=== PATIENT | female | born 1975 | race Caucasian/White ===

== ENCOUNTER 2018-01-06 13:33 | Emergency (ER) | payer OTHER ==
[~2018-01-06] VITALS: Ht 165.1 cm; Wt 81.7 kg
[2018-01-06] MEDS ORDERED: ADDERALL 10 MG10 MG PO (13:49)
[2018-01-06] MEDS ORDERED: NABUMETONE 750750 M1 PO (14:21)
[2018-01-06] MEDS ORDERED: ONDANSETRON HCL4 M2 PO (14:22)
[2018-01-06 15:10] VITALS: BP 122/44
== END 2018-01-06 15:10 | disposition home or self-care (01) ==
LOC: M.ERS 13:33
DX: S06.0X0A Concussion without loss of consciousness, initial encounter (principal); J45.909 Unspecified asthma, uncomplicated; W22.8XXA Striking against or struck by other objects, initial encounter; Y93.89 Activity, other specified; Y92.89 Other specified places as the place of occurrence of the external cause; Y99.0 Civilian activity done for income or pay

== ENCOUNTER 2020-02-05 21:28 | Emergency (ER) | payer OTHER ==
[~2020-02-05] VITALS: Ht 165.1 cm; Wt 86.2 kg
[~2020-02-05 21:28] MED LIST: ADDERALL 10 MG10 MG PO; NABUMETONE 750750 M1 PO; ONDANSETRON HCL4 M2 PO
[2020-02-05] MEDS ORDERED: PYRIDIUM200 MG PO (21:46)
[2020-02-05] MEDS ORDERED: PROAIR HFA8.5 GM INH (21:46)
[2020-02-05 22:44] LABS: MCH 31.5 pg (26.0-34.0); NUCLEATED RBCS 0 /100WBC
[2020-02-05 22:49] LABS: ABSOLUTE BASOPHILS 0.1 thou/uL (0.0-0.2); ABSOLUTE EOSINOPHILS 0.2 thou/uL (0.0-0.7); ABSOLUTE LYMPHOCYTES 3.1 thou/uL (0.8-5.3); ABSOLUTE MONOCYTES 0.4 thou/uL (0.0-1.2); ABSOLUTE NEUTROPHILS 4.1 thou/uL (1.6-8.1); BASOPHILS 0.7 %; EOSINOPHILS 2.4 %; HEMATOCRIT 39.9 % (37.0-47.0); HEMOGLOBIN 13.5 gm/dL (12.0-15.0); LYMPHOCYTES 39.2 %; MCHC 33.8 g/dL (28.0-37.0); MCV 93.1 fL (80.0-100.0); MONOCYTES 5.4 %; MPV 8.7 fl. (7.2-11.1); PLATELET COUNT* 218 thou/uL (150-400); POLYS 52.3 %; RBC 4.29 mil/uL (4.20-5.00); RDW-CV 13.5 % (10.5-14.5); WBC 7.8 thou/uL (4.0-11.0)
[2020-02-05 22:51] LABS: INFLUENZA A ANTIGEN Negative (Negative); INFLUENZA B ANTIGEN Negative (Negative)
[2020-02-05 23:00] LABS: CREATININE 0.8 mg/dL (0.6-1.3); POTASSIUM 3.9 mmol/L (3.5-5.1)
[2020-02-05 23:03] LABS: ALBUMIN 3.5 g/dL (3.4-5.0); TOTAL BILIRUBIN 0.2 mg/dL (<0.1-1.0); TOTAL PROTEIN 6.9 g/dL (6.4-8.2)
[2020-02-06 00:27] VITALS: BP 115/69
--- NOTE | 2020-02-06 09:56 | EKG ---
[place] [address] ELECTROCARDIOGRAM REPORT Name: SOLAPRISCA Vang Room: [facility]#: [id number] Admission: 02/05/20 Attend Phys: Discharge: 02/06/20 Date of : 79 Date of Service: 02/05/202135 Report #: [id number] THIS REPORT FOR: //name// [facility] ED Test Date: 2020-02-05 Test Time: 21:36:17 Pat Name: PRISCA SELBY Department: Room: Gender: Pull Out Operator: REANNA : 1975 Requested By: Janee Gil Order Number: [id number] MD: Toribio Muir Measurements Intervals [place] Rate: 81 P: 26 MI: 152 QRS: 25 QRSD: 118 T: 6 QT: 379 QTc: 440 Interpretive Statements Sinus rhythm with sinus arrhythmia Nonspecific intraventricular conduction delay Low voltage, precordial leads Borderline T abnormalities, anterior leads No previous ECG available for comparison Electronically Signed On 02-06-2020 9:55:53 [employer] by Toribio Muir [email or web address] <ELECTRONICALLY SIGNED> By: Toribio Muir MD, [facility] 02/06/20 0955 35 35 Toribio Muir MD, [facility] /EPI
== END 2020-02-06 00:27 | disposition home or self-care (01) ==
LOC: M.ERS 21:28
PROVIDERS: Personal Emergency Response Attendant
DX: R53.83 Other fatigue (principal); R06.02 Shortness of breath; R07.89 Other chest pain; J45.909 Unspecified asthma, uncomplicated; F98.8 Other specified behavioral and emotional disorders with onset usually occurring in childhood and adolescence; Z79.899 Other long term (current) drug therapy; Z20.828 Contact with and (suspected) exposure to other viral communicable diseases